=== PATIENT | male | born 1995 | race Caucasian/White ===

== ENCOUNTER → 2024-08-05 06:41 | Outpatient (REF) | payer BC, SELFPAY | LOC: RAD 06:41 | PROVIDERS: ATTENDING PHYSICIAN Internal Medicine | DX: I10 Essential (primary) hypertension (principal) | CPT/HCPCS: 93975 ==

== ENCOUNTER → 2025-02-15 06:39 | Outpatient (REF) | payer BC, SELFPAY | LOC: HWRAD 06:39 | PROVIDERS: ATTENDING PHYSICIAN Internal Medicine | DX: R74.01 Elevation of levels of liver transaminase levels (principal); K42.9 Umbilical hernia without obstruction or gangrene | CPT/HCPCS: 76700 ==